=== PATIENT | male | born 1980 | race Caucasian/White ===

== ENCOUNTER → 2017-11-25 11:23 | Outpatient (CLI) | payer OTHER, MEDICAID, SELFPAY ==
--- NOTE | 2017-11-25 11:27 | DI.RAD.S_ITS ---
PROCEDURE: XR SHOULDER RT MIN 2V INDICATIONS: atraumatic AC joint pain with decreased ROM TECHNIQUE: 2 views of the shoulder were acquired. COMPARISON: None. FINDINGS: Bones: No fractures or dislocations. No suspicious bony lesions. Visualized ribs appear intact. Mild acromioclavicular and glenohumeral joint degeneration with joint space narrowing and small osteophytes. Soft tissues: No suspicious soft tissue calcifications. IMPRESSION: Mild degenerative joint disease. Dictated by: Wilfredo Mendez M.D. on 11/25/2017 at 11:55 Approved by: Wilfredo Mendez M.D. on 11/25/2017 at 12:00
== END ==
PROVIDERS: PCP Family Medicine; Visit Provider Physician Assistant
DX: M19.011 Primary osteoarthritis, right shoulder (principal); M25.511 Pain in right shoulder
CPT/HCPCS: 73030

== ENCOUNTER 2018-04-05 09:45 | Outpatient (RCR) | payer OTHER, MEDICAID, SELFPAY ==
--- NOTE | 2018-02-24 10:30 | PT.OPPOC ---
Current Diagnoses Pain in right shoulder (02/24/18) Stiffness of right shoulder, not elsewhere classified (02/24/18) Muscle weakness (generalized) (02/24/18) Provider Visit Care Team Role Provider Type Estela Huertas DO Attending Provider Physician Family Provider Primary Care Provider Specialty: Family Practice Address: [address] [place] [address], [id number] Email: [email or web address] Plan Of Care PT-OP-T Assessment and Plan Start: 02/24/18 12:29 Freq: Status: Active Protocol: Document 02/24/18 10:30 RCC (Rec: 02/24/18 17:45 RCC [email or web address]) Physical Therapy Assessment Rehab Potential Rehabilitation Potential Good Evaluation Complexity Number of Personal Factors/Comorbidities 0 Number of Body Systems Impaired 3 Clinical Presentation at Evaluation Stable Goals pain with work Impairment pain Short Term Goal (STG) decrease pain to 5/10 or less with work related tasks. STG Duration 4 weeks Detective Supervisor Goal (LTG) decrease pain to 3/10 or less with work related tasks. LTG Duration 8 weeks ROM Impairment R shoulder ROM Detective Supervisor Goal (LTG) R shoulder abduction AROM to 170 deg abduction and 70 deg IR. LTG Duration 8 weeks RUE weakness Impairment R shoulder and elbow weakness Short Term Goal (STG) 4+/5 or greater with MMT shoulder IR, ER, and elbow flexion on the R. STG Duration 4 weeks Fdc Goal (LTG) 5/5 or greater with MMT shoulder IR, ER, and elbow flexion on the R. LTG Duration 8 weeks Quick DASH Impairment Quick DASH functional score Short Term Goal (STG) <45 for improvements with functional ability using the RUE. STG Duration 4 weeks Detective Supervisor Goal (LTG) <30 for improvements with functional ability using the RUE. LTG Duration 8 weeks Assessment Summary Assessment Pt presents with signs and symptoms of AC joint and GH joint impingement, along with impaired body mechanics and muscular weakness of the R shoulder girdle. Pt with instability of the R shoulder, with positive apprehension of the R shoulder, potentially from subluxation and/or dislocation years ago. Pt would greatly benefit from skilled physical therapy to progress his strength, ROM, and overall function in the R shoulder to tolerate work related activities and improve stability of the RUE for further re-aggravation of symptoms. Physical Therapy Plan Frequency and Duration Frequency of Treatment 2x/Week Duration of Treatment 8 weeks Plan of Care Start Date 02/24/18 Plan of Care End Date 04/21/18 Therapeutic Interventions Therapeutic Interventions Aquatic Therapy Home Exercise Program Joint Mobilizations Manual Therapy Neuromuscular Re-education Patient/Caregiver Education Self-Care/Home Management Soft Tissue Mobilization Taping Therapeutic Activities Therapeutic Exercises Modalities Cold Pack/Ice Massage Electric Stimulation Hot Packs Infrared Therapy Iontophoresis Ultrasound Other Therapeutic Interventions Iontophoresis- dexamethasone 4 mg/mL Next Visit Focus/Plan Next Note Type Treatment Note Next Visit Plan assess skin with Kinesiotape; scapular retraction, supine punches, L1 IR and ER if tolerable. STR to supraspinatus, subscapularis, UT. Scapular mobilizations Plan of Care Dates Plan of Care Start Date 02/24/18 Plan of Care End Date 04/21/18 Please Sign and Return: I have reviewed this Plan of Care and certify that the skilled therapy services above are required to meet the patient?s needs. Physician Signature Date Printed Name and Credentials Clinical Instructor Signature Printed Name and Credentials
--- NOTE | 2018-02-24 10:30 | PT.OIE ---
Current Diagnoses Pain in right shoulder (02/24/18) Stiffness of right shoulder, not elsewhere classified (02/24/18) Muscle weakness (generalized) (02/24/18) Past Medical History (Last Updated 01/18/18 @ 08:33 by Lovely Lemos LPN) Eczema (Chronic) Low back pain (Chronic 1995) Finger fracture (Resolved 2007) Shoulder pain (Resolved 2016) Provider Visit Care Team Role Provider Type Estela Huertas DO Attending Provider Physician Family Provider Primary Care Provider Specialty: Family Practice Address: [address] [place] [address], [facility] Email: [email or web address] Physical Therapy Initial Evaluation PT-OP-A Visit Information Start: 02/24/18 12:29 Freq: Status: Active Protocol: Document 02/24/18 10:30 RCC (Rec: 02/24/18 12:41 RCC [email or web address]) Out-Patient Physical Therapy Visit Information Visit Information Visit Type Initial Evaluation Visit Start Time 09:45 Visit Stop Time 10:30 Total Visit Minutes 45 Visit Number 1 Number of GUN STOCK CHECKER Visits 0 Evaluation Information Evaluation Date 02/24/18 PT-OP-B Current Condition Start: 02/24/18 12:29 Freq: Status: Active Protocol: Document 02/24/18 10:30 RCC (Rec: 02/24/18 12:41 RCC [email or web address]) Current Condition History of Current Condition Onset Date Spring 2017 (recent flare up) but h/o shoulder issues since I was a kid Current Complaints R shoulder pain, difficulty sleeping History of Current Condition Pt is a 37 y/o male presenting to physical therapy with a c/ o R shoulder pain. Pt denies any recent trauma or mechanism of injury. He notes that he injured his R shoulder multiple times when he was younger, including possibly dislocating his R shoulder x1. 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 Rest, ice, and heat have helped some in the past, but mainly he has pain with most any activity, as well as increased pain with attempting to sleep. He is only sleeping about 4 hrs per night due to pain. Prior Treatments and Tests shoulder radiograph Future Testing and Treatments Planned R shoulder MRI if PT unsuccessful Treatment Goals Patient/Caregiver Goals decrease pain, improve work tasks and sleep. Prior Functional Status Baseline Function- ADL's Independent Baseline Function- Work/School no issues with work related tasks and R shoulder Current Functional Impairments (Reported) Functional Limitations- ADL's increased time for don/doffing shirt, requires extended scrubber to wash his back. Functional Limitations- Work/School pain with all work taks PT-OP-C Subjective Start: 02/24/18 12:29 Freq: Status: Active Protocol: Document 02/24/18 10:30 RCC (Rec: 02/24/18 12:41 RCC [email or web address]) OP-PT Subjective Patient Comments Patient Comments Pt notes that pain never got better this last onset of pain like it usually does. Patient Questionnaires Lower Extremity Functional Scale LEFS Score 60 OP-PT Pain Assessment Location Right Shoulder Pain Location Details 9 Scale Used Numeric (1 - 10) Frequency Frequent PT-OP-F Manual Assessment Start: 02/24/18 12:29 Freq: Status: Active Protocol: Document 02/24/18 10:30 RCC (Rec: 02/24/18 13:37 RCC [email or web address]) Manual Assessments Soft Tissue Assessment Soft Tissue Mobility Assessment Tender to palpation: R subscapularis, supraspinatus, upper trapezius Joint Mobility Assessment Joint Mobility Assessment Tender to palpation: R AC joint PT-OP-J Posture/Palpation/Skin Start: 02/24/18 12:29 Freq: Status: Active Protocol: Document 02/24/18 10:30 RCC (Rec: 02/24/18 13:37 RCC [email or web address]) Posture Evaluation Comments Posture Comments depressed R shoulder, elevated distal aspect of clavicle @ AC joint PT-OP-K Range of Motion Start: 02/24/18 12:29 Freq: Status: Active Protocol: Document 02/24/18 10:30 RCC (Rec: 02/24/18 13:37 RCC [email or web address]) Cervical Spine Range of Motion Cervical Spine Active Degrees Testing Position Sitting Flexion 60 Extension 45 Rotation Left 72 Rotation Right 82 Lateral Flexion Left 40 Lateral Flexion Right 37 ROM Limitations Soft Tissue Tightness Shoulder Goniometric Range of Motion Shoulder Measured in Degrees Left Active Testing Position Supine Flexion 180 Abduction 170 External Rotation at 90 degrees 89 Abduction Internal Rotation 80 Right Active Testing Position Supine Flexion 180 Abduction 140 External Rotation at 90 degrees 80 Abduction Internal Rotation 58 Shoulder ROM Limitations Shoulder ROM Limitations Soft Tissue Tightness Pain PT-OP-L Special Tests Start: 02/24/18 12:29 Freq: Status: Active Protocol: Document 02/24/18 10:30 RCC (Rec: 02/24/18 13:37 RCC [email or web address]) Special Tests Cervical Spine Special Tests Spurling's Test Test Results negative B Shoulder Special Tests IR/Horizontal ADD Impingement Test Results positive R Biceps Load II Test Test Results negative B Lift-Off Rotator Cuff Test Results negative B Relocation Test Results relieves on the R Neer Impingement Test Results positive R Anterior Draw Test Results mild laxity B Comments 1 finger length each Empty Can Test Results negative B Drop Arm Rotator Cuff Test Results negative B Lebron Dennsi Impingement Test Results positive R Apprehension Test Test Results positive R Sulcus Test Results positive B AC Joint Compression Test Results painful R PT-OP-M Strength Start: 02/24/18 12:29 Freq: Status: Active Protocol: Document 02/24/18 10:30 RCC (Rec: 02/24/18 13:37 [email or web address] [email or web address]) Shoulder Strength Shoulder Manual Muscle Testing Right Flexion 5 Normal Abduction (C5) 5 Normal External Rotation 4 Good Internal Rotation 4 Good Left Flexion 5 Normal Abduction (C5) 5 Normal External Rotation 5 Normal Internal Rotation 5 Normal Elbow/Forearm Strength Elbow and Forearm Manual Muscle Testing Right Flexion (C6) 4+ Good+ Extension (C7) 5 Normal Left Flexion (C6) 5 Normal Extension (C7) 5 Normal PT-OP-Q Treatments Start: 02/24/18 12:29 Freq: Status: Active Protocol: Document 02/24/18 10:30 RCC (Rec: 02/24/18 12:46 RCC [email or web address]) Manual Therapy Treatment Taping R shoulder Body Location R shoulder Treatment Focus shoulder stability, positioning Type of Tape Kinesio Tape Comments Impingement protocol- 2 Y strips, 1 I strip over AC joint with added 1 additional I strip to X over AC joint. PT-OP-T Assessment and Plan Start: 02/24/18 12:29 Freq: Status: Active Protocol: Document 02/24/18 10:30 RCC (Rec: 02/24/18 17:45 RCC [email or web address]) Physical Therapy Assessment Rehab Potential Rehabilitation Potential Good Evaluation Complexity Number of Personal Factors/Comorbidities 0 Number of Body Systems Impaired 3 Clinical Presentation at Evaluation Stable Goals pain with work Impairment pain Short Term Goal (STG) decrease pain to 5/10 or less with work related tasks. STG Duration 4 weeks Residential Goal (LTG) decrease pain to 3/10 or less with work related tasks. LTG Duration 8 weeks ROM Impairment R shoulder ROM Apprentice Carpenter Goal (LTG) R shoulder abduction AROM to 170 deg abduction and 70 deg IR. LTG Duration 8 weeks RUE weakness Impairment R shoulder and elbow weakness Short Term Goal (STG) 4+/5 or greater with MMT shoulder IR, ER, and elbow flexion on the R. STG Duration 4 weeks Apprentice Carpenter Goal (LTG) 5/5 or greater with MMT shoulder IR, ER, and elbow flexion on the R. LTG Duration 8 weeks Quick DASH Impairment Quick DASH functional score Short Term Goal (STG) <45 for improvements with functional ability using the RUE. STG Duration 4 weeks Residential Goal (LTG) <30 for improvements with functional ability using the RUE. LTG Duration 8 weeks Assessment Summary Assessment Pt presents with signs and symptoms of AC joint and GH joint impingement, along with impaired body mechanics and muscular weakness of the R shoulder girdle. Pt with instability of the R shoulder, with positive apprehension of the R shoulder, potentially from subluxation and/or dislocation years ago. Pt would greatly benefit from skilled physical therapy to progress his strength, ROM, and overall function in the R shoulder to tolerate work related activities and improve stability of the RUE for further re-aggravation of symptoms. Physical Therapy Plan Frequency and Duration Frequency of Treatment 2x/Week Duration of Treatment 8 weeks Plan of Care Start Date 02/24/18 Plan of Care End Date 04/21/18 Therapeutic Interventions Therapeutic Interventions Aquatic Therapy Home Exercise Program Joint Mobilizations Manual Therapy Neuromuscular Re-education Patient/Caregiver Education Self-Care/Home Management Soft Tissue Mobilization Taping Therapeutic Activities Therapeutic Exercises Modalities Cold Pack/Ice Massage Electric Stimulation Hot Packs Infrared Therapy Iontophoresis Ultrasound Other Therapeutic Interventions Iontophoresis- dexamethasone 4 mg/mL Next Visit Focus/Plan Next Note Type Treatment Note Next Visit Plan assess skin with Kinesiotape; scapular retraction, supine punches, L1 IR and ER if tolerable. STR to supraspinatus, subscapularis, UT. Scapular mobilizations
--- NOTE | 2018-03-15 11:12 | PT.OTN ---
Current Diagnoses Pain in right shoulder (03/15/18) Physical Therapy Treatment Note PT-OP-A Visit Information Start: 02/24/18 12:29 Freq: Status: Active Protocol: Document 03/15/18 09:45 GGD (Rec: 03/15/18 11:12 GGD [email or web address]) Out-Patient Physical Therapy Visit Information Visit Information Visit Type Treatment Note Visit Start Time 09:45 Visit Stop Time 10:25 Total Visit Minutes 40 Visit Number 2 Number of PROCESSING ANALYST Visits 1 Evaluation Information Evaluation Date 02/24/18 PT-OP-B Current Condition Start: 02/24/18 12:29 Freq: Status: Active Protocol: Document 02/24/18 10:30 RCC (Rec: 02/24/18 12:41 RCC [email or web address]) Current Condition History of Current Condition Onset Date Spring 2017 (recent flare up) but h/o shoulder issues since I was a kid Current Complaints R shoulder pain, difficulty sleeping History of Current Condition Pt is a 37 y/o male presenting to physical therapy with a c/ o R shoulder pain. Pt denies any recent trauma or mechanism of injury. He notes that he injured his R shoulder multiple times when he was younger, including possibly dislocating his R shoulder x1. 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 Rest, ice, and heat have helped some in the past, but mainly he has pain with most any activity, as well as increased pain with attempting to sleep. He is only sleeping about 4 hrs per night due to pain. Prior Treatments and Tests shoulder radiograph Future Testing and Treatments Planned R shoulder MRI if PT unsuccessful Treatment Goals Patient/Caregiver Goals decrease pain, improve work tasks and sleep. Prior Functional Status Baseline Function- ADL's Independent Baseline Function- Work/School no issues with work related tasks and R shoulder Current Functional Impairments (Reported) Functional Limitations- ADL's increased time for don/doffing shirt, requires extended scrubber to wash his back. Functional Limitations- Work/School pain with all work taks PT-OP-C Subjective Start: 02/24/18 12:29 Freq: Status: Active Protocol: Document 03/15/18 09:45 GGD (Rec: 03/15/18 11:12 GGD [email or web address]) OP-PT Subjective Patient Comments Patient Comments Pt states shoulder felt better with tape on. He had increase in pain last 4-5 days. PT-OP-F Manual Assessment Start: 02/24/18 12:29 Freq: Status: Active Protocol: Document 02/24/18 10:30 RCC (Rec: 02/24/18 13:37 RCC [email or web address]) Manual Assessments Soft Tissue Assessment Soft Tissue Mobility Assessment Tender to palpation: R subscapularis, supraspinatus, upper trapezius Joint Mobility Assessment Joint Mobility Assessment Tender to palpation: R AC joint PT-OP-J Posture/Palpation/Skin Start: 02/24/18 12:29 Freq: Status: Active Protocol: Document 02/24/18 10:30 RCC (Rec: 02/24/18 13:37 RCC [email or web address]) Posture Evaluation Comments Posture Comments depressed R shoulder, elevated distal aspect of clavicle @ AC joint PT-OP-K Range of Motion Start: 02/24/18 12:29 Freq: Status: Active Protocol: Document 02/24/18 10:30 RCC (Rec: 02/24/18 13:37 RCC [email or web address]) Cervical Spine Range of Motion Cervical Spine Active Degrees Testing Position Sitting Flexion 60 Extension 45 Rotation Left 72 Rotation Right 82 Lateral Flexion Left 40 Lateral Flexion Right 37 ROM Limitations Soft Tissue Tightness Shoulder Goniometric Range of Motion Shoulder Measured in Degrees Left Active Testing Position Supine Flexion 180 Abduction 170 External Rotation at 90 degrees 89 Abduction Internal Rotation 80 Right Active Testing Position Supine Flexion 180 Abduction 140 External Rotation at 90 degrees 80 Abduction Internal Rotation 58 Shoulder ROM Limitations Shoulder ROM Limitations Soft Tissue Tightness Pain PT-OP-L Special Tests Start: 02/24/18 12:29 Freq: Status: Active Protocol: Document 02/24/18 10:30 RCC (Rec: 02/24/18 13:37 RCC [email or web address]) Special Tests Cervical Spine Special Tests Spurling's Test Test Results negative B Shoulder Special Tests IR/Horizontal ADD Impingement Test Results positive R Biceps Load II Test Test Results negative B Lift-Off Rotator Cuff Test Results negative B Relocation Test Results relieves on the R Neer Impingement Test Results positive R Anterior Draw Test Results mild laxity B Comments 1 finger length each Empty Can Test Results negative B Drop Arm Rotator Cuff Test Results negative B Lebron Dennis Impingement Test Results positive R Apprehension Test Test Results positive R Sulcus Test Results positive B AC Joint Compression Test Results painful R PT-OP-M Strength Start: 02/24/18 12:29 Freq: Status: Active Protocol: Document 02/24/18 10:30 RCC (Rec: 02/24/18 13:37 RCC [email or web address]) Shoulder Strength Shoulder Manual Muscle Testing Right Flexion 5 Normal Abduction (C5) 5 Normal External Rotation 4 Good Internal Rotation 4 Good Left Flexion 5 Normal Abduction (C5) 5 Normal External Rotation 5 Normal Internal Rotation 5 Normal Elbow/Forearm Strength Elbow and Forearm Manual Muscle Testing Right Flexion (C6) 4+ Good+ Extension (C7) 5 Normal Left Flexion (C6) 5 Normal Extension (C7) 5 Normal PT-OP-Q Treatments Start: 02/24/18 12:29 Freq: Status: Active Protocol: Document 03/15/18 09:45 GGD (Rec: 03/15/18 11:12 GGD [email or web address]) Therapeutic Exercises Supine Exercises 1 Supine Exercise Name Punches Side bilateral Resistance 3 Equipment Used hand weights Reps/Minutes 20 Standing Exercises 3 Standing Exercise Name Row Side bilateral Resistance Level 1 Equipment Used Thara band Reps/Minutes 15 2 Standing Exercise Name Shoulder IR Side right Resistance Level 1 Equipment Used Thara band Reps/Minutes 20 1 Standing Exercise Name Shoulder ER Side right Resistance level 1 Equipment Used Thara band Reps/Minutes 20 Manual Therapy Treatment Soft Tissue Mobilization 1 Body Location UT, subscap, pec Mobilization Type Myofascial Release Rolling Sustained Pressure Intensity/Depth Moderate Body Position Supine Joint Mobilizations 1 Joint scapular Grade III Body Position Sidelying Reps/Duration 10 Taping R shoulder Body Location R shoulder Treatment Focus shoulder stability, positioning Type of Tape Kinesio Tape Comments Impingement protocol- 2 Y strips, 1 I strip over AC joint with added 1 additional I strip to X over AC joint. PT-OP-T Assessment and Plan Start: 02/24/18 12:29 Freq: Status: Active Protocol: Document 03/15/18 09:45 GGD (Rec: 03/15/18 11:12 GGD [email or web address]) Physical Therapy Assessment Assessment Summary Assessment Pt need cues for exercise techinque and posture. He good tolerance to light exercise. He had decrease in pain after deandra therapy. Physical Therapy Plan Frequency and Duration Frequency of Treatment 2x/Week Duration of Treatment 8 weeks Plan of Care Start Date 02/24/18 Plan of Care End Date 04/21/18 Therapeutic Interventions Therapeutic Interventions Aquatic Therapy Home Exercise Program Joint Mobilizations Manual Therapy Neuromuscular Re-education Patient/Caregiver Education Self-Care/Home Management Soft Tissue Mobilization Taping Therapeutic Activities Therapeutic Exercises Modalities Cold Pack/Ice Massage Electric Stimulation Hot Packs Infrared Therapy Iontophoresis Ultrasound Other Therapeutic Interventions Iontophoresis- dexamethasone 4 mg/mL Next Visit Focus/Plan Next Note Type Treatment Note Next Visit Plan Kinesiotape, strengthening and posture awareness.
--- NOTE | 2018-03-22 10:13 | PT.OTN ---
Current Diagnoses Pain in right shoulder (03/22/18) Physical Therapy Treatment Note PT-OP-A Visit Information Start: 02/24/18 12:29 Freq: Status: Active Protocol: Document 03/22/18 10:05 GGD (Rec: 03/22/18 10:13 GGD [email or web address]) Out-Patient Physical Therapy Visit Information Visit Information Visit Type Treatment Note Visit Start Time 09:40 Visit Stop Time 10:05 Total Visit Minutes 45 Visit Number 3 Number of DEMAND INSPECTOR Visits 2 Evaluation Information Evaluation Date 02/24/18 PT-OP-B Current Condition Start: 02/24/18 12:29 Freq: Status: Active Protocol: Document 02/24/18 10:30 RCC (Rec: 02/24/18 12:41 RCC [email or web address]) Current Condition History of Current Condition Onset Date Spring 2017 (recent flare up) but h/o shoulder issues since I was a kid Current Complaints R shoulder pain, difficulty sleeping History of Current Condition Pt is a 37 y/o male presenting to physical therapy with a c/ o R shoulder pain. Pt denies any recent trauma or mechanism of injury. He notes that he injured his R shoulder multiple times when he was younger, including possibly dislocating his R shoulder x1. 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 Rest, ice, and heat have helped some in the past, but mainly he has pain with most any activity, as well as increased pain with attempting to sleep. He is only sleeping about 4 hrs per night due to pain. Prior Treatments and Tests shoulder radiograph Future Testing and Treatments Planned R shoulder MRI if PT unsuccessful Treatment Goals Patient/Caregiver Goals decrease pain, improve work tasks and sleep. Prior Functional Status Baseline Function- ADL's Independent Baseline Function- Work/School no issues with work related tasks and R shoulder Current Functional Impairments (Reported) Functional Limitations- ADL's increased time for don/doffing shirt, requires extended scrubber to wash his back. Functional Limitations- Work/School pain with all work taks PT-OP-C Subjective Start: 02/24/18 12:29 Freq: Status: Active Protocol: Document 03/22/18 10:05 GGD (Rec: 03/22/18 10:13 GGD [email or web address]) OP-PT Subjective Patient Comments Patient Comments Pt states that he having less cramping in shoulder and been doing a little more without increase in pain. PT-OP-F Manual Assessment Start: 02/24/18 12:29 Freq: Status: Active Protocol: Document 02/24/18 10:30 RCC (Rec: 02/24/18 13:37 RCC [email or web address]) Manual Assessments Soft Tissue Assessment Soft Tissue Mobility Assessment Tender to palpation: R subscapularis, supraspinatus, upper trapezius Joint Mobility Assessment Joint Mobility Assessment Tender to palpation: R AC joint PT-OP-J Posture/Palpation/Skin Start: 02/24/18 12:29 Freq: Status: Active Protocol: Document 02/24/18 10:30 RCC (Rec: 02/24/18 13:37 RCC [email or web address]) Posture Evaluation Comments Posture Comments depressed R shoulder, elevated distal aspect of clavicle @ AC joint PT-OP-K Range of Motion Start: 02/24/18 12:29 Freq: Status: Active Protocol: Document 02/24/18 10:30 RCC (Rec: 02/24/18 13:37 RCC [email or web address]) Cervical Spine Range of Motion Cervical Spine Active Degrees Testing Position Sitting Flexion 60 Extension 45 Rotation Left 72 Rotation Right 82 Lateral Flexion Left 40 Lateral Flexion Right 37 ROM Limitations Soft Tissue Tightness Shoulder Goniometric Range of Motion Shoulder Measured in Degrees Left Active Testing Position Supine Flexion 180 Abduction 170 External Rotation at 90 degrees 89 Abduction Internal Rotation 80 Right Active Testing Position Supine Flexion 180 Abduction 140 External Rotation at 90 degrees 80 Abduction Internal Rotation 58 Shoulder ROM Limitations Shoulder ROM Limitations Soft Tissue Tightness Pain PT-OP-L Special Tests Start: 02/24/18 12:29 Freq: Status: Active Protocol: Document 02/24/18 10:30 RCC (Rec: 02/24/18 13:37 RCC [email or web address]) Special Tests Cervical Spine Special Tests Spurling's Test Test Results negative B Shoulder Special Tests IR/Horizontal ADD Impingement Test Results positive R Biceps Load II Test Test Results negative B Lift-Off Rotator Cuff Test Results negative B Relocation Test Results relieves on the R Neer Impingement Test Results positive R Anterior Draw Test Results mild laxity B Comments 1 finger length each Empty Can Test Results negative B Drop Arm Rotator Cuff Test Results negative B Le[place] Dennis Impingement Test Results positive R Apprehension Test Test Results positive R Sulcus Test Results positive B AC Joint Compression Test Results painful R PT-OP-M Strength Start: 02/24/18 12:29 Freq: Status: Active Protocol: Document 02/24/18 10:30 RCC (Rec: 02/24/18 13:37 RCC [email or web address]) Shoulder Strength Shoulder Manual Muscle Testing Right Flexion 5 Normal Abduction (C5) 5 Normal External Rotation 4 Good Internal Rotation 4 Good Left Flexion 5 Normal Abduction (C5) 5 Normal External Rotation 5 Normal Internal Rotation 5 Normal Elbow/Forearm Strength Elbow and Forearm Manual Muscle Testing Right Flexion (C6) 4+ Good+ Extension (C7) 5 Normal Left Flexion (C6) 5 Normal Extension (C7) 5 Normal PT-OP-Q Treatments Start: 02/24/18 12:29 Freq: Status: Active Protocol: Document 03/22/18 10:05 GGD (Rec: 03/22/18 10:13 GGD [email or web address]) Therapeutic Exercises Supine Exercises 2 Supine Exercise Name 1/2 foam roll stretch and shoulder flexion Side bilateral Reps/Minutes 5 1 Supine Exercise Name Punches Side bilateral Resistance 3 Equipment Used hand weights Reps/Minutes 20 Comments on 1/2 foam roll. Sitting Exercises 1 Sitting Exercise Name Pulleys abduction Side right Reps/Minutes 3 Standing Exercises 4 Standing Exercise Name shoulder extension Side bilateral Resistance Level 1 Reps/Minutes 20 3 Standing Exercise Name Row Side bilateral Resistance Level 1 Equipment Used Thara band Reps/Minutes 15 2 Standing Exercise Name Shoulder IR Side right Resistance Level 1 Equipment Used Thara band Reps/Minutes 20 1 Standing Exercise Name Shoulder ER Side right Resistance level 1 Equipment Used Thara band Reps/Minutes 20 Manual Therapy Treatment Soft Tissue Mobilization 1 Body Location UT, subscap, pec Mobilization Type Myofascial Release Rolling Sustained Pressure Intensity/Depth Moderate Body Position Supine Joint Mobilizations 1 Joint scapular Grade III Body Position Sidelying Reps/Duration 10 Taping R shoulder Body Location R shoulder Treatment Focus shoulder stability, positioning Type of Tape Kinesio Tape Comments Impingement protocol- 2 Y strips, 1 I strip over AC joint with added 1 additional I strip to X over AC joint. PT-OP-T Assessment and Plan Start: 02/24/18 12:29 Freq: Status: Active Protocol: Document 03/22/18 10:05 GGD (Rec: 03/22/18 10:13 GGD [email or web address]) Physical Therapy Assessment Assessment Summary Assessment Pt improved with exercise tolerance. He had improvement in active ROM with decrease in pain with treatment. Physical Therapy Plan Frequency and Duration Frequency of Treatment 2x/Week Duration of Treatment 8 weeks Plan of Care Start Date 02/24/18 Plan of Care End Date 04/21/18 Therapeutic Interventions Therapeutic Interventions Aquatic Therapy Home Exercise Program Joint Mobilizations Manual Therapy Neuromuscular Re-education Patient/Caregiver Education Self-Care/Home Management Soft Tissue Mobilization Taping Therapeutic Activities Therapeutic Exercises Modalities Cold Pack/Ice Massage Electric Stimulation Hot Packs Infrared Therapy Iontophoresis Ultrasound Other Therapeutic Interventions Iontophoresis- dexamethasone 4 mg/mL Next Visit Focus/Plan Next Note Type Treatment Note Next Visit Plan Shoulder strengthening and posture awareness.
--- NOTE | 2018-03-24 10:30 | PT.OTN ---
Current Diagnoses Pain in right shoulder (03/24/18) Physical Therapy Treatment Note PT-OP-A Visit Information Start: 02/24/18 12:29 Freq: Status: Active Protocol: Document 03/24/18 10:30 RCC (Rec: 03/24/18 13:42 RCC [email or web address]) Out-Patient Physical Therapy Visit Information Visit Information Visit Type Treatment Note Visit Start Time 09:50 Visit Stop Time 10:30 Total Visit Minutes 40 Visit Number 4 Number of LOCKSTITCH WAISTLINE JOINER Visits 0 Evaluation Information Evaluation Date 02/24/18 PT-OP-B Current Condition Start: 02/24/18 12:29 Freq: Status: Active Protocol: Document 02/24/18 10:30 RCC (Rec: 02/24/18 12:41 RCC [email or web address]) Current Condition History of Current Condition Onset Date Spring 2017 (recent flare up) but h/o shoulder issues since I was a kid Current Complaints R shoulder pain, difficulty sleeping History of Current Condition Pt is a 37 y/o male presenting to physical therapy with a c/ o R shoulder pain. Pt denies any recent trauma or mechanism of injury. He notes that he injured his R shoulder multiple times when he was younger, including possibly dislocating his R shoulder x1. 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 Rest, ice, and heat have helped some in the past, but mainly he has pain with most any activity, as well as increased pain with attempting to sleep. He is only sleeping about 4 hrs per night due to pain. Prior Treatments and Tests shoulder radiograph Future Testing and Treatments Planned R shoulder MRI if PT unsuccessful Treatment Goals Patient/Caregiver Goals decrease pain, improve work tasks and sleep. Prior Functional Status Baseline Function- ADL's Independent Baseline Function- Work/School no issues with work related tasks and R shoulder Current Functional Impairments (Reported) Functional Limitations- ADL's increased time for don/doffing shirt, requires extended scrubber to wash his back. 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 PT-OP-F Manual Assessment Start: 02/24/18 12:29 Freq: Status: Active Protocol: Document 02/24/18 10:30 RCC (Rec: 02/24/18 13:37 RCC [email or web address]) Manual Assessments Soft Tissue Assessment Soft Tissue Mobility Assessment Tender to palpation: R subscapularis, supraspinatus, upper trapezius Joint Mobility Assessment Joint Mobility Assessment Tender to palpation: R AC joint PT-OP-J Posture/Palpation/Skin Start: 02/24/18 12:29 Freq: Status: Active Protocol: Document 02/24/18 10:30 RCC (Rec: 02/24/18 13:37 RCC [email or web address]) Posture Evaluation Comments Posture Comments depressed R shoulder, elevated distal aspect of clavicle @ AC joint PT-OP-K Range of Motion Start: 02/24/18 12:29 Freq: Status: Active Protocol: Document 02/24/18 10:30 RCC (Rec: 02/24/18 13:37 RCC [email or web address]) Cervical Spine Range of Motion Cervical Spine Active Degrees Testing Position Sitting Flexion 60 Extension 45 Rotation Left 72 Rotation Right 82 Lateral Flexion Left 40 Lateral Flexion Right 37 ROM Limitations Soft Tissue Tightness Shoulder Goniometric Range of Motion Shoulder Measured in Degrees Left Active Testing Position Supine Flexion 180 Abduction 170 External Rotation at 90 degrees 89 Abduction Internal Rotation 80 Right Active Testing Position Supine Flexion 180 Abduction 140 External Rotation at 90 degrees 80 Abduction Internal Rotation 58 Shoulder ROM Limitations Shoulder ROM Limitations Soft Tissue Tightness Pain PT-OP-L Special Tests Start: 02/24/18 12:29 Freq: Status: Active Protocol: Document 02/24/18 10:30 RCC (Rec: 02/24/18 13:37 RCC [email or web address]) Special Tests Cervical Spine Special Tests Spurling's Test Test Results negative B Shoulder Special Tests IR/Horizontal ADD Impingement Test Results positive R Biceps Load II Test Test Results negative B Lift-Off Rotator Cuff Test Results negative B Relocation Test Results relieves on the R Neer Impingement Test Results positive R Anterior Draw Test Results mild laxity B Comments 1 finger length each Empty Can Test Results negative B Drop Arm Rotator Cuff Test Results negative B [place] Dennis Impingement Test Results positive R Apprehension Test Test Results positive R Sulcus Test Results positive B AC Joint Compression Test Results painful R PT-OP-M Strength Start: 02/24/18 12:29 Freq: Status: Active Protocol: Document 02/24/18 10:30 RCC (Rec: 02/24/18 13:37 RCC [email or web address]) Shoulder Strength Shoulder Manual Muscle Testing Right Flexion 5 Normal Abduction (C5) 5 Normal External Rotation 4 Good Internal Rotation 4 Good Left Flexion 5 Normal Abduction (C5) 5 Normal External Rotation 5 Normal Internal Rotation 5 Normal Elbow/Forearm Strength Elbow and Forearm Manual Muscle Testing Right Flexion (C6) 4+ Good+ Extension (C7) 5 Normal Left Flexion (C6) 5 Normal Extension (C7) 5 Normal PT-OP-Q Treatments Start: 02/24/18 12:29 Freq: Status: Active Protocol: Document 03/24/18 10:30 RCC (Rec: 03/24/18 13:42 RCC [email or web address]) Therapeutic Exercises Supine Exercises pec stretch Supine Exercise Name pectoral stretch Side right scapular retraction Supine Exercise Name scapular retraction Side bilateral Comments cuing for UT inhibition Sidelying Exercises ER Sidelying Exercise Name External rotation Side right Equipment Used towel roll under arm Reps/Minutes 1x12 Sitting Exercises 1 Sitting Exercise Name Pulleys abduction Side right Reps/Minutes 6 Manual Therapy Treatment Soft Tissue Mobilization 1 Body Location UT, subscap, pec Mobilization Type Myofascial Release Rolling Sustained Pressure Intensity/Depth Moderate Body Position Supine Joint Mobilizations 2 Joint Glenohumeral (right) Direction inferior Grade III Body Position Supine Reps/Duration 5 min 1 Joint scapular Grade III Body Position Sidelying Reps/Duration 10 Taping R shoulder Body Location R shoulder Treatment Focus shoulder stability, positioning Type of Tape Kinesio Tape Comments Impingement protocol- 2 Y strips, 1 I strip over AC joint with added 1 additional I strip to X over AC joint. PT-OP-T Assessment and Plan Start: 02/24/18 12:29 Freq: Status: Active Protocol: Document 03/24/18 10:30 RCC (Rec: 03/24/18 13:42 RCC [email or web address]) Physical Therapy Assessment Assessment Summary Assessment Pt able to achieve 165 degrees AROM R shoulder abduction after manual therapy and jing's. Pt required tactile cuing initially for SL ER, but able to tolerated without pain (added to HEP). Physical Therapy Plan Frequency and Duration Frequency of Treatment 2x/Week Duration of Treatment 8 weeks Plan of Care Start Date 02/24/18 Plan of Care End Date 04/21/18 Next Visit Focus/Plan Next Note Type Treatment Note Next Visit Plan SL abduction without resistance, trial I/T/Y prone or with ball
--- NOTE | 2018-03-29 12:02 | PT.OTN ---
Current Diagnoses Pain in right shoulder (03/29/18) Physical Therapy Treatment Note PT-OP-A Visit Information Start: 02/24/18 12:29 Freq: Status: Active Protocol: Document 03/29/18 09:45 GGD (Rec: 03/29/18 12:02 GGD [email or web address]) Out-Patient Physical Therapy Visit Information Visit Information Visit Type Treatment Note Visit Start Time 09:45 Visit Stop Time 10:25 Total Visit Minutes 40 Visit Number 5 Number of MITER SAWYER Visits 1 Evaluation Information Evaluation Date 02/24/18 PT-OP-B Current Condition Start: 02/24/18 12:29 Freq: Status: Active Protocol: Document 02/24/18 10:30 RCC (Rec: 02/24/18 12:41 RCC [email or web address]) Current Condition History of Current Condition Onset Date Spring 2017 (recent flare up) but h/o shoulder issues since I was a kid Current Complaints R shoulder pain, difficulty sleeping History of Current Condition Pt is a 37 y/o male presenting to physical therapy with a c/ o R shoulder pain. Pt denies any recent trauma or mechanism of injury. He notes that he injured his R shoulder multiple times when he was younger, including possibly dislocating his R shoulder x1. 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 Rest, ice, and heat have helped some in the past, but mainly he has pain with most any activity, as well as increased pain with attempting to sleep. He is only sleeping about 4 hrs per night due to pain. Prior Treatments and Tests shoulder radiograph Future Testing and Treatments Planned R shoulder MRI if PT unsuccessful Treatment Goals Patient/Caregiver Goals decrease pain, improve work tasks and sleep. Prior Functional Status Baseline Function- ADL's Independent Baseline Function- Work/School no issues with work related tasks and R shoulder Current Functional Impairments (Reported) Functional Limitations- ADL's increased time for don/doffing shirt, requires extended scrubber to wash his back. Functional Limitations- Work/School pain with all work taks PT-OP-C Subjective Start: 02/24/18 12:29 Freq: Status: Active Protocol: Document 03/29/18 09:45 GGD (Rec: 03/29/18 12:02 GGD [email or web address]) OP-PT Subjective Patient Comments Patient Comments Pt states he been sore as he doing more work, but not as bad. PT-OP-F Manual Assessment Start: 02/24/18 12:29 Freq: Status: Active Protocol: Document 02/24/18 10:30 RCC (Rec: 02/24/18 13:37 RCC [email or web address]) Manual Assessments Soft Tissue Assessment Soft Tissue Mobility Assessment Tender to palpation: R subscapularis, supraspinatus, upper trapezius Joint Mobility Assessment Joint Mobility Assessment Tender to palpation: R AC joint PT-OP-J Posture/Palpation/Skin Start: 02/24/18 12:29 Freq: Status: Active Protocol: Document 02/24/18 10:30 RCC (Rec: 02/24/18 13:37 RCC [email or web address]) Posture Evaluation Comments Posture Comments depressed R shoulder, elevated distal aspect of clavicle @ AC joint PT-OP-K Range of Motion Start: 02/24/18 12:29 Freq: Status: Active Protocol: Document 02/24/18 10:30 RCC (Rec: 02/24/18 13:37 RCC [email or web address]) Cervical Spine Range of Motion Cervical Spine Active Degrees Testing Position Sitting Flexion 60 Extension 45 Rotation Left 72 Rotation Right 82 Lateral Flexion Left 40 Lateral Flexion Right 37 ROM Limitations Soft Tissue Tightness Shoulder Goniometric Range of Motion Shoulder Measured in Degrees Left Active Testing Position Supine Flexion 180 Abduction 170 External Rotation at 90 degrees 89 Abduction Internal Rotation 80 Right Active Testing Position Supine Flexion 180 Abduction 140 External Rotation at 90 degrees 80 Abduction Internal Rotation 58 Shoulder ROM Limitations Shoulder ROM Limitations Soft Tissue Tightness Pain PT-OP-L Special Tests Start: 02/24/18 12:29 Freq: Status: Active Protocol: Document 02/24/18 10:30 RCC (Rec: 02/24/18 13:37 RCC [email or web address]) Special Tests Cervical Spine Special Tests Spurling's Test Test Results negative B Shoulder Special Tests IR/Horizontal ADD Impingement Test Results positive R Biceps Load II Test Test Results negative B Lift-Off Rotator Cuff Test Results negative B Relocation Test Results relieves on the R Neer Impingement Test Results positive R Anterior Draw Test Results mild laxity B Comments 1 finger length each Empty Can Test Results negative B Drop Arm Rotator Cuff Test Results negative B Le[place] Dennis Impingement Test Results positive R Apprehension Test Test Results positive R Sulcus Test Results positive B AC Joint Compression Test Results painful R PT-OP-M Strength Start: 02/24/18 12:29 Freq: Status: Active Protocol: Document 02/24/18 10:30 RCC (Rec: 02/24/18 13:37 RCC [email or web address]) Shoulder Strength Shoulder Manual Muscle Testing Right Flexion 5 Normal Abduction (C5) 5 Normal External Rotation 4 Good Internal Rotation 4 Good Left Flexion 5 Normal Abduction (C5) 5 Normal External Rotation 5 Normal Internal Rotation 5 Normal Elbow/Forearm Strength Elbow and Forearm Manual Muscle Testing Right Flexion (C6) 4+ Good+ Extension (C7) 5 Normal Left Flexion (C6) 5 Normal Extension (C7) 5 Normal PT-OP-Q Treatments Start: 02/24/18 12:29 Freq: Status: Active Protocol: Document 03/29/18 09:45 GGD (Rec: 03/29/18 12:02 GGD [email or web address]) Gym Equipment Therapeutic Ball 1 Exercise Details Y, T, and I's Ball Size/Color green Body Position Prone Reps/Duration 10 each Comments cues needed Therapeutic Exercises Supine Exercises pec stretch Supine Exercise Name pectoral stretch Side right Sidelying Exercises 1 Sidelying Exercise Name shoulder abduction Side right Resistance 1# Reps/Minutes 15 ER Sidelying Exercise Name External rotation Side right Equipment Used towel roll under arm Reps/Minutes 1x15 Sitting Exercises 1 Sitting Exercise Name Pulleys abduction Side right Reps/Minutes 6 Manual Therapy Treatment Soft Tissue Mobilization 1 Body Location UT, subscap, pec Mobilization Type Myofascial Release Rolling Sustained Pressure Intensity/Depth Moderate Body Position Supine Joint Mobilizations 2 Joint Glenohumeral (right) Direction inferior Grade III Body Position Supine Reps/Duration 5 min 1 Joint scapular Grade III Body Position Sidelying Reps/Duration 10 Taping R shoulder Body Location R shoulder Treatment Focus shoulder stability, positioning Type of Tape Kinesio Tape Comments Impingement protocol- 2 Y strips, 1 I strip over AC joint with added 1 additional I strip to X over AC joint. PT-OP-T Assessment and Plan Start: 02/24/18 12:29 Freq: Status: Active Protocol: Document 03/29/18 09:45 GGD (Rec: 03/29/18 12:02 GGD [email or web address]) Physical Therapy Assessment Assessment Summary Assessment Pt improving with shoulder AROM and tolerance to strengthening. He did need cues for posture and scap control with exercise. Physical Therapy Plan Frequency and Duration Frequency of Treatment 2x/Week Duration of Treatment 8 weeks Plan of Care Start Date 02/24/18 Plan of Care End Date 04/21/18 Next Visit Focus/Plan Next Note Type Treatment Note Next Visit Plan progress strengthening and ROM .
--- NOTE | 2018-04-05 14:53 | PT.OTN ---
Current Diagnoses Pain in right shoulder (04/05/18) Physical Therapy Treatment Note PT-OP-A Visit Information Start: 02/24/18 12:29 Freq: Status: Active Protocol: Document 04/05/18 14:41 GGD (Rec: 04/05/18 14:53 GGD [email or web address]) Out-Patient Physical Therapy Visit Information Visit Information Visit Type Treatment Note Visit Start Time 09:45 Visit Stop Time 10:25 Total Visit Minutes 40 Visit Number 6 Number of LABOR RELATIONS DIRECTOR Visits 2 Evaluation Information Evaluation Date 02/24/18 PT-OP-B Current Condition Start: 02/24/18 12:29 Freq: Status: Active Protocol: Document 02/24/18 10:30 RCC (Rec: 02/24/18 12:41 RCC [email or web address]) Current Condition History of Current Condition Onset Date Spring 2017 (recent flare up) but h/o shoulder issues since I was a kid Current Complaints R shoulder pain, difficulty sleeping History of Current Condition Pt is a 37 y/o male presenting to physical therapy with a c/ o R shoulder pain. Pt denies any recent trauma or mechanism of injury. He notes that he injured his R shoulder multiple times when he was younger, including possibly dislocating his R shoulder x1. 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 Rest, ice, and heat have helped some in the past, but mainly he has pain with most any activity, as well as increased pain with attempting to sleep. He is only sleeping about 4 hrs per night due to pain. Prior Treatments and Tests shoulder radiograph Future Testing and Treatments Planned R shoulder MRI if PT unsuccessful Treatment Goals Patient/Caregiver Goals decrease pain, improve work tasks and sleep. Prior Functional Status Baseline Function- ADL's Independent Baseline Function- Work/School no issues with work related tasks and R shoulder Current Functional Impairments (Reported) Functional Limitations- ADL's increased time for don/doffing shirt, requires extended scrubber to wash his back. Functional Limitations- Work/School pain with all work taks PT-OP-C Subjective Start: 02/24/18 12:29 Freq: Status: Active Protocol: Document 04/05/18 14:41 GGD (Rec: 04/05/18 14:53 GGD [email or web address]) OP-PT Subjective Patient Comments Patient Comments Pt states he had done a lot of work over the last six days and his shoulder is very sore. PT-OP-F Manual Assessment Start: 02/24/18 12:29 Freq: Status: Active Protocol: Document 02/24/18 10:30 RCC (Rec: 02/24/18 13:37 RCC [email or web address]) Manual Assessments Soft Tissue Assessment Soft Tissue Mobility Assessment Tender to palpation: R subscapularis, supraspinatus, upper trapezius Joint Mobility Assessment Joint Mobility Assessment Tender to palpation: R AC joint PT-OP-J Posture/Palpation/Skin Start: 02/24/18 12:29 Freq: Status: Active Protocol: Document 02/24/18 10:30 RCC (Rec: 02/24/18 13:37 RCC [email or web address]) Posture Evaluation Comments Posture Comments depressed R shoulder, elevated distal aspect of clavicle @ AC joint PT-OP-K Range of Motion Start: 02/24/18 12:29 Freq: Status: Active Protocol: Document 02/24/18 10:30 RCC (Rec: 02/24/18 13:37 RCC [email or web address]) Cervical Spine Range of Motion Cervical Spine Active Degrees Testing Position Sitting Flexion 60 Extension 45 Rotation Left 72 Rotation Right 82 Lateral Flexion Left 40 Lateral Flexion Right 37 ROM Limitations Soft Tissue Tightness Shoulder Goniometric Range of Motion Shoulder Measured in Degrees Left Active Testing Position Supine Flexion 180 Abduction 170 External Rotation at 90 degrees 89 Abduction Internal Rotation 80 Right Active Testing Position Supine Flexion 180 Abduction 140 External Rotation at 90 degrees 80 Abduction Internal Rotation 58 Shoulder ROM Limitations Shoulder ROM Limitations Soft Tissue Tightness Pain PT-OP-L Special Tests Start: 02/24/18 12:29 Freq: Status: Active Protocol: Document 02/24/18 10:30 RCC (Rec: 02/24/18 13:37 RCC [email or web address]) Special Tests Cervical Spine Special Tests Spurling's Test Test Results negative B Shoulder Special Tests IR/Horizontal ADD Impingement Test Results positive R Biceps Load II Test Test Results negative B Lift-Off Rotator Cuff Test Results negative B Relocation Test Results relieves on the R Neer Impingement Test Results positive R Anterior Draw Test Results mild laxity B Comments 1 finger length each Empty Can Test Results negative B Drop Arm Rotator Cuff Test Results negative B [place] Dennis Impingement Test Results positive R Apprehension Test Test Results positive R Sulcus Test Results positive B AC Joint Compression Test Results painful R PT-OP-M Strength Start: 02/24/18 12:29 Freq: Status: Active Protocol: Document 02/24/18 10:30 RCC (Rec: 02/24/18 13:37 RCC [email or web address]) Shoulder Strength Shoulder Manual Muscle Testing Right Flexion 5 Normal Abduction (C5) 5 Normal External Rotation 4 Good Internal Rotation 4 Good Left Flexion 5 Normal Abduction (C5) 5 Normal External Rotation 5 Normal Internal Rotation 5 Normal Elbow/Forearm Strength Elbow and Forearm Manual Muscle Testing Right Flexion (C6) 4+ Good+ Extension (C7) 5 Normal Left Flexion (C6) 5 Normal Extension (C7) 5 Normal PT-OP-Q Treatments Start: 02/24/18 12:29 Freq: Status: Active Protocol: Document 04/05/18 14:41 GGD (Rec: 04/05/18 14:53 GGD [email or web address]) Therapeutic Exercises Supine Exercises pec stretch Supine Exercise Name pectoral stretch Side right scapular retraction Supine Exercise Name scapular retraction Side bilateral Comments cuing for UT inhibition Sidelying Exercises 1 Sidelying Exercise Name shoulder abduction Side right Resistance 1# Reps/Minutes 15 ER Sidelying Exercise Name External rotation Side right Equipment Used towel roll under arm Reps/Minutes 1x15 Sitting Exercises 1 Sitting Exercise Name Pulleys abduction Side right Reps/Minutes 6 Manual Therapy Treatment Soft Tissue Mobilization 1 Body Location UT, subscap, pec Mobilization Type Myofascial Release Rolling Sustained Pressure Intensity/Depth Moderate Body Position Supine Joint Mobilizations 2 Joint Glenohumeral (right) Direction inferior Grade III Body Position Supine Reps/Duration 5 min 1 Joint scapular Grade III Body Position Sidelying Reps/Duration 10 PT-OP-T Assessment and Plan Start: 02/24/18 12:29 Freq: Status: Active Protocol: Document 04/05/18 14:41 GGD (Rec: 04/05/18 14:53 GGD [email or web address]) Physical Therapy Assessment Goals pain with work Impairment pain Short Term Goal (STG) decrease pain to 5/10 or less with work related tasks. 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 LTG Duration 8 weeks ROM Impairment R shoulder ROM Retirement Goal (LTG) R shoulder abduction AROM to 170 deg abduction and 70 deg IR. LTG Duration 8 weeks RUE weakness Impairment R shoulder and elbow weakness Short Term Goal (STG) 4+/5 or greater with MMT shoulder IR, ER, and elbow flexion on the R. STG Duration 4 weeks Retirement Goal (LTG) 5/5 or greater with MMT shoulder IR, ER, and elbow flexion on the R. LTG Duration 8 weeks Quick DASH Impairment Quick DASH functional score Short Term Goal (STG) <45 for improvements with functional ability using the RUE. STG Duration 4 weeks Retirement Goal (LTG) <30 for improvements with functional ability using the RUE. LTG Duration 8 weeks Assessment Summary Assessment Pt had increase in pain today that limit his tolerance to exercise. 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 Physical Therapy Plan Frequency and Duration Frequency of Treatment 2x/Week Duration of Treatment 8 weeks Plan of Care Start Date 02/24/18 Plan of Care End Date 04/21/18 Next Visit Focus/Plan Next Note Type Treatment Note Next Visit Plan Kinesiotape, progress strengthening and ROM.
--- NOTE | 2018-06-16 10:28 | PT.OPDS ---
Current Diagnoses Pain in right shoulder (04/05/18) Provider Visit Care Team Role Provider Type Estela Huertas DO Attending Provider Physician Family Provider Primary Care Provider Specialty: Family Practice Address: [address] [place] [address], [id number] Email: [email or web address] Visit Number Visit Number 6 Discharge Summary PT-OP-B Current Condition Start: 02/24/18 12:29 Freq: Status: Active Protocol: Document 02/24/18 10:30 RCC (Rec: 02/24/18 12:41 RCC [email or web address]) Current Condition History of Current Condition Onset Date Spring 2017 (recent flare up) but h/o shoulder issues since I was a kid Current Complaints R shoulder pain, difficulty sleeping History of Current Condition Pt is a 37 y/o male presenting to physical therapy with a c/ o R shoulder pain. Pt denies any recent trauma or mechanism of injury. He notes that he injured his R shoulder multiple times when he was younger, including possibly dislocating his R shoulder x1. 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 Rest, ice, and heat have helped some in the past, but mainly he has pain with most any activity, as well as increased pain with attempting to sleep. He is only sleeping about 4 hrs per night due to pain. Prior Treatments and Tests shoulder radiograph Future Testing and Treatments Planned R shoulder MRI if PT unsuccessful Treatment Goals Patient/Caregiver Goals decrease pain, improve work tasks and sleep. Prior Functional Status Baseline Function- ADL's Independent Baseline Function- Work/School no issues with work related tasks and R shoulder Current Functional Impairments (Reported) Functional Limitations- ADL's increased time for don/doffing shirt, requires extended scrubber to wash his back. Functional Limitations- Work/School pain with all work taks PT-OP-C Subjective Start: 02/24/18 12:29 Freq: Status: Active Protocol: Document 04/05/18 14:41 GGD (Rec: 04/05/18 14:53 GGD [email or web address]) OP-PT Subjective Patient Comments Patient Comments Pt states he had done a lot of work over the last six days and his shoulder is very sore. PT-OP-F Manual Assessment Start: 02/24/18 12:29 Freq: Status: Active Protocol: Document 02/24/18 10:30 RCC (Rec: 02/24/18 13:37 RCC [email or web address]) Manual Assessments Soft Tissue Assessment Soft Tissue Mobility Assessment Tender to palpation: R subscapularis, supraspinatus, upper trapezius Joint Mobility Assessment Joint Mobility Assessment Tender to palpation: R AC joint PT-OP-J Posture/Palpation/Skin Start: 02/24/18 12:29 Freq: Status: Active Protocol: Document 02/24/18 10:30 RCC (Rec: 02/24/18 13:37 RCC [email or web address]) Posture Evaluation Comments Posture Comments depressed R shoulder, elevated distal aspect of clavicle @ AC joint PT-OP-K Range of Motion Start: 02/24/18 12:29 Freq: Status: Active Protocol: Document 02/24/18 10:30 RCC (Rec: 02/24/18 13:37 RCC [email or web address]) Cervical Spine Range of Motion Cervical Spine Active Degrees Testing Position Sitting Flexion 60 Extension 45 Rotation Left 72 Rotation Right 82 Lateral Flexion Left 40 Lateral Flexion Right 37 ROM Limitations Soft Tissue Tightness Shoulder Goniometric Range of Motion Shoulder Measured in Degrees Left Active Testing Position Supine Flexion 180 Abduction 170 External Rotation at 90 degrees 89 Abduction Internal Rotation 80 Right Active Testing Position Supine Flexion 180 Abduction 140 External Rotation at 90 degrees 80 Abduction Internal Rotation 58 Shoulder ROM Limitations Shoulder ROM Limitations Soft Tissue Tightness Pain PT-OP-L Special Tests Start: 02/24/18 12:29 Freq: Status: Active Protocol: Document 02/24/18 10:30 RCC (Rec: 02/24/18 13:37 RCC [email or web address]) Special Tests Cervical Spine Special Tests Spurling's Test Test Results negative B Shoulder Special Tests IR/Horizontal ADD Impingement Test Results positive R Biceps Load II Test Test Results negative B Lift-Off Rotator Cuff Test Results negative B Relocation Test Results relieves on the R Neer Impingement Test Results positive R Anterior Draw Test Results mild laxity B Comments 1 finger length each Empty Can Test Results negative B Drop Arm Rotator Cuff Test Results negative B [place] Impingement Test Results positive R Apprehension Test Test Results positive R Sulcus Test Results positive B AC Joint Compression Test Results painful R PT-OP-M Strength Start: 02/24/18 12:29 Freq: Status: Active Protocol: Document 02/24/18 10:30 RCC (Rec: 02/24/18 13:37 RCC [email or web address]) Shoulder Strength Shoulder Manual Muscle Testing Right Flexion 5 Normal Abduction (C5) 5 Normal External Rotation 4 Good Internal Rotation 4 Good Left Flexion 5 Normal Abduction (C5) 5 Normal External Rotation 5 Normal Internal Rotation 5 Normal Elbow/Forearm Strength Elbow and Forearm Manual Muscle Testing Right Flexion (C6) 4+ Good+ Extension (C7) 5 Normal Left Flexion (C6) 5 Normal Extension (C7) 5 Normal PT-OP-T Assessment and Plan Start: 02/24/18 12:29 Freq: Status: Active Protocol: Document 06/16/18 10:23 RCC (Rec: 06/16/18 10:28 [facility] [email or web address]) Physical Therapy Assessment Assessment Summary Assessment Pt attended 6 total physical therapy appointments, with some improvements noted by pt but due to his continued need to be working, his pain appeared to be exacerbated with his job requirements. Pt was called to discuss if he needed to return to physical therapy, a message was left but pt did not return this call. At the time of the pt's final attended appointment, his shoulder was sore due to working 6 days straight. At this time, pt has not attended PT since March of 2018, and due to the length of time since his final session, it is recommended that pt return to his MD and follow up regarding continued pain. Highly recommend and MRI of the pt's R shoulder at this time. Objective measures were unable to be taken due to pt not completing the most recent plan of care. Physical Therapy Plan Other Referrals/Consults Referrals/Consults Recommended recommend MRI of R shoulder Discharge Physical Therapy Discharge Reasons No Longer Attending PT Discharge Comments failure to complete most recent plan of care.
== END 2018-07-12 14:04 ==
LOC: PHYS 09:45
PROVIDERS: Family Provider Family Medicine; PCP Family Medicine; Visit Provider Family Medicine
DX: M25.511 Pain in right shoulder (principal)
CPT/HCPCS: 97110; 97140; 97161